=== PATIENT | female | born 1985 | race Caucasian/White ===

== ENCOUNTER → 2017-04-23 | Outpatient (CLI) | payer OTHER ==
[~2017-04-23] MED LIST: IBU600 MG PO; PERCOCET 325 MG1 TA2 PO; PRENATAL1 TA7 PO
== END ==
LOC: SUN.DIA 13:00
DX: O24.419 Gestational diabetes mellitus in pregnancy, unspecified control (principal); Z3A.31 31 weeks gestation of pregnancy; Z71.3 Dietary counseling and surveillance
CPT/HCPCS: G0108

== ENCOUNTER → 2017-04-24 | Outpatient (CLI) | payer OTHER | LOC: SUN.DIA 13:05 | DX: O24.419 Gestational diabetes mellitus in pregnancy, unspecified control (principal); Z3A.31 31 weeks gestation of pregnancy; Z71.3 Dietary counseling and surveillance | CPT/HCPCS: G0108 ==

== ENCOUNTER 2017-05-14 09:18 | Inpatient (IN) | payer OTHER ==
[~2017-05-14] VITALS: Ht 155 cm; Wt 57.3 kg
[2017-06-29] VITALS (20 sets, daily range): BP systolic 92–112; BP diastolic 45–82; PULSE 45–69; TEMP 97.4–98.2
[2017-06-29] MEDS ORDERED: PRENATAL1 TA7 PO (09:27)
[2017-06-29 10:24] LABS: BASO % 0.4 % (0.0-2.0); EOS % 0.3 % (0-4.0); GRAN # 5.1 (1.4-6.5); GRAN % 69.3 % (42.2-75.2); HEMOGLOBIN 12.9 g/dl (12.5-16.0); LYMPH # 1.7 (1.2-3.4); LYMPH % 22.8 % (20.0-51.0); MEAN CELL VOLUME 89 fl (80.0-100.0); MEAN CORPUSCULAR HEMOGLOBIN 30 pg (27.0-31.0); MEAN CORPUSCULAR HGB CONC 34 g/dl (33.0-37.0); MEAN PLATELET VOLUME 12.8 fl (7.4-10.4); MONO # 0.5 (0.1-0.6); MONO % 6.8 % (1.7-9.3); PLATELET COUNT 130 K/mm3 (130-400); RED BLOOD COUNT 4.28 M/mm3 (4.10-5.30); REDCELL DISTRIBUTION WIDTH-CV 14.3 % (11.5-14.5); WHITE BLOOD COUNT 7.3 K/mm3 (4.8-10.8)
[2017-06-30 06:44] LABS: HEMATOCRIT 29.2 % (37.0-47.0); HEMOGLOBIN 9.7 g/dl (12.5-16.0)
[2017-06-30 07:20] VITALS: BP 93/54; PULSE 55; TEMP 97.6
[2017-06-30] MEDS ORDERED: IBU600 MG PO (08:57)
[2017-06-30] MEDS ORDERED: PERCOCET 325 MG1 TA2 PO (08:57)
[2017-06-30 16:00] VITALS: BP 100/58; PULSE 64; TEMP 97.8
[2017-06-30 20:45] VITALS: BP 97/58; PULSE 65; TEMP 98.1
[2017-07-01 07:20] VITALS: BP 99/57; PULSE 70; TEMP 98.6
== END 2017-07-01 11:50 | disposition home or self-care (01) | DRG 765 ==
LOC: OB 06-29 06:57 → EDSTATUS 07-05 06:54 → LDRO 07-05 09:18
PROVIDERS: Obstetrics & Gynecology
PROC: 10D00Z1 Extraction of Products of Conception, Low, Open Approach (ICD-10-PCS; principal; 2017-06-29)
DX: O34.211 Maternal care for low transverse scar from previous cesarean delivery (principal); O36.0130 Maternal care for anti-D [Rh] antibodies, third trimester, not applicable or unspecified; D62 Acute posthemorrhagic anemia; O99.02 Anemia complicating childbirth; N85.8 Other specified noninflammatory disorders of uterus; O24.420 Gestational diabetes mellitus in childbirth, diet controlled; Z3A.39 39 weeks gestation of pregnancy; Z37.0 Single live birth
CPT/HCPCS: J0690; J1885; J2270; J2370; J2405; J2590; J2791; J7120

== ENCOUNTER → 2019-06-26 | Outpatient (CLI) | payer OTHER ==
[2019-06-26 17:30] LABS: COLLECTION METHOD CLEAN CATCH
[2019-06-26 17:36] LABS: BASO # 0.1 (0.0-0.2); BASO % 0.8 % (0.0-2.0); EOS # 0.1 (0.0-0.7); EOS % 0.8 % (0-4.0); GRAN # 4.9 (1.4-6.5); HEMATOCRIT 41.1 % (37.0-47.0); HEMOGLOBIN 13.5 g/dl (12.5-16.0); LYMPH # 2.9 (1.2-3.4); LYMPH % 33.1 % (20.0-51.0); MEAN CELL VOLUME 87 fl (80.0-100.0); MEAN CORPUSCULAR HEMOGLOBIN 29 pg (27.0-31.0); MEAN CORPUSCULAR HGB CONC 33 g/dl (33.0-37.0); MEAN PLATELET VOLUME 11.1 fl (7.4-10.4); MONO # 0.8 (0.1-0.6); MONO % 9.1 % (1.7-9.3); PLATELET COUNT 220 K/mm3 (130-400); RED BLOOD COUNT 4.71 M/mm3 (4.10-5.30); REDCELL DISTRIBUTION WIDTH-CV 12.5 % (11.5-14.5)
[2019-06-26 17:39] LABS: PH 6 (5-8); SQUAMOUS EPITHELIAL None Seen /hpf; URINE APPEARANCE Clear; URINE BACTERIA None Seen /hpf; URINE BILIRUBIN Negative (NEGATIVE); URINE BLOOD 1+ (NEGATIVE); URINE COLOR Colorless; URINE GLUCOSE Negative (NEGATIVE); URINE KETONE Negative (NEGATIVE); URINE LEUKOCYTE ESTERASE Negative (NEGATIVE); URINE NITRATE Negative (NEGATIVE); URINE PROTEIN(semi-quant) Negative (NEGATIVE); URINE RBC 0-2 /hpf; URINE UROBILINOGEN Negative (NEGATIVE); URINE WBC 0-2 /hpf
[2019-06-26 18:10] LABS: CALCIUM 9.6 mg/dL (8.4-10.2); CREATININE, serum 0.63 (0.52-1.25)
== END ==
LOC: ZCOL.LAB 17:25
PROVIDERS: Family Medicine
DX: R10.9 Unspecified abdominal pain (principal)

== ENCOUNTER → 2021-12-21 | Outpatient (CLI) | payer OTHER | LOC: DIA.ED 14:55 | DX: O24.419 Gestational diabetes mellitus in pregnancy, unspecified control (principal) | CPT/HCPCS: G0108 ==

== ENCOUNTER 2022-01-22 14:03 | Outpatient (CLI) | payer OTHER ==
[~2022-01-22] VITALS: Ht 157.5 cm; Wt 55.9 kg
[2022-01-22 14:00] VITALS: BP 97/53; PULSE 71; TEMP 98.1
--- NOTE | 2022-01-22 14:00 | NUR ---
Presents to labor and delivery. States having contractions, and says feels them in the back. Assessment done, questions offered and answered.
[2022-01-22 14:30] VITALS: BP 98/57; PULSE 62
--- NOTE | 2022-01-22 15:45 | NUR ---
Ambulates to the bathroom. Urine obtained and sent to lab. Vag exam done, cervix closed. States still having some back pain.
[2022-01-22 15:52] LABS: COLLECTION METHOD CLEAN CATCH
[2022-01-22 16:00] VITALS: BP 100/60; PULSE 54
[2022-01-22 16:00] LABS: MUCOUS Present (NOT PRESENT); PH 7 (5-8); SQUAMOUS EPITHELIAL 0-2 /hpf (0-10); URINE APPEARANCE Hazy (CLEAR/HAZY); URINE BACTERIA Rare /hpf (NONE SEEN); URINE BILIRUBIN Negative (NEGATIVE); URINE BLOOD Negative (NEGATIVE); URINE COLOR Yellow (YELLOW); URINE GLUCOSE Negative (NEGATIVE); URINE KETONE 2+ (NEGATIVE); URINE LEUKOCYTE ESTERASE 3+ (NEGATIVE); URINE NITRATE Negative (NEGATIVE); URINE PROTEIN(semi-quant) Negative (NEGATIVE); URINE RBC 0-2 /hpf (0-2); URINE UROBILINOGEN Negative (NEGATIVE)
--- NOTE | 2022-01-22 16:00 | NUR ---
Rests in bed, alert. Tylenol 1000 mg, vistaril 50 mg given as ordered. Crackers given.
[2022-01-22 17:00] VITALS: BP 96/55; PULSE 69
--- NOTE | 2022-01-22 17:00 | NUR ---
States contractions not coming as often. [place] and jelly given.
== END 2022-01-22 17:45 | disposition home or self-care (01) ==
LOC: LDRO 14:03
PROVIDERS: Obstetrics & Gynecology
DX: O62.9 Abnormality of forces of labor, unspecified (principal); Z3A.35 35 weeks gestation of pregnancy

== ENCOUNTER 2022-02-14 08:44 | Inpatient (IN) | payer OTHER ==
[~2022-02-14] VITALS: Ht 157.5 cm; Wt 55.6 kg
[2022-02-14] VITALS (17 sets, daily range): BP systolic 91–124; BP diastolic 39–100; PULSE 50–93; TEMP 97–97.9
--- NOTE | 2022-02-14 08:50 | NUR ---
PT ARRIVES AMBULATORY TO UNIT FOR SCHEDULED REPEAT CSECTION. PT DENIES CONTRACTIONS AND LOF. REPORTS POSITIVE MOVEMENT. PLACED ON EFM/TOCO UPON ARRIVAL, CATEGORY 1 TRACING. VITAL SIGNS STABLE. PHYSICIAN AND TEAM NOTIFIED OF PT ARRIVAL. WILL RESUME WITH POC PER PROTOCOL.
[2022-02-14 09:30] LABS: HEMATOCRIT 37.8 % (37.0-47.0); HEMOGLOBIN 12.7 g/dl (12.5-16.0); MEAN CELL VOLUME 93 fl (80.0-100.0); MEAN CORPUSCULAR HEMOGLOBIN 31 pg (27-31); MEAN CORPUSCULAR HGB CONC 34 g/dl (33.0-37.0); MEAN PLATELET VOLUME 12.4 fl (7.4-10.4); PLATELET COUNT 121 K/mm3 (130-400); RED BLOOD COUNT 4.07 M/mm3 (4.10-5.30); REDCELL DISTRIBUTION WIDTH-CV 14.5 % (11.5-14.5)
[2022-02-14 09:54] LABS: BAND 5 % (0-10); LYMPHOCYTE 26 % (20.0-51.0); METAMYELOCYTE 1 % (0-0); MYELOCYTE 2 % (0-0); NEUTROPHILS 60 % (42.0-75.2)
[2022-02-14 09:55] LABS: PLATELET ESTIMATE DECREASED (NORMAL)
[2022-02-15] VITALS: BP 91/47; PULSE 53; TEMP 98.1
[2022-02-15 05:53] LABS: BASO % 0.4 % (0.0-2.0); EOS % 0.2 % (0.0-4.0); GRAN # 7.9 K/mm3 (1.4-6.5); GRAN % 74.7 % (42.2-75.2); LYMPH # 1.6 K/mm3 (1.2-3.4); LYMPH % 14.9 % (20.0-51.0); MEAN CELL VOLUME 93 fl (80.0-100.0); MEAN CORPUSCULAR HGB CONC 33 g/dl (33.0-37.0); MEAN PLATELET VOLUME 11.9 fl (7.4-10.4); MONO # 0.9 K/mm3 (0.1-0.6); MONO % 8.9 % (1.7-9.3); PLATELET COUNT 114 K/mm3 (130-400); REDCELL DISTRIBUTION WIDTH-CV 14.6 % (11.5-14.5)
[2022-02-15 05:54] LABS: HEMATOCRIT 30.7 % (37.0-47.0); HEMOGLOBIN 10.2 g/dl (12.5-16.0); MEAN CORPUSCULAR HEMOGLOBIN 31 pg (27-31)
[2022-02-15 07:45] VITALS: BP 91/45; PULSE 54; TEMP 98
--- NOTE | 2022-02-15 08:00 | NUR ---
Rests in bed, alert. Percocet 5/325 mg one given per request and as ordered. Denies any other need at this time.
--- NOTE | 2022-02-15 10:01 | NUR ---
Initial visit; Parents thanked [employer] for offering congratulations and God's blessings for the of their son. [employer] thanked family for choosing [facility].
[2022-02-15 11:00] VITALS: BP 92/52; PULSE 66; TEMP 97.7
[2022-02-15 16:00] VITALS: BP 101/50; PULSE 67; TEMP 97.9
--- NOTE | 2022-02-15 16:00 | NUR ---
Rests in bed, alert. Percocet 5/325 mg one given per request and as ordered.
--- NOTE | 2022-02-15 17:28 | NUR ---
Rests in bed, alert. Ibuprofen 600 mg given as ordered.
[2022-02-15 19:00] VITALS: BP 91/48; PULSE 64; TEMP 97.8
--- NOTE | 2022-02-16 04:39 | NUR ---
02/15 2200 PATIENT UP, SHOWERED, REMOVED DRESSING.
[2022-02-16 05:30] VITALS: BP 84/45; PULSE 60; TEMP 98.1
[2022-02-16 08:10] VITALS: BP 90/48; PULSE 58; TEMP 97.8
[2022-02-16] MEDS ORDERED: IBU600 MG PO (08:42)
[2022-02-16] MEDS ORDERED: PERCOCET 325 MG1 TA2 PO (08:42)
== END 2022-02-16 12:35 | disposition home or self-care (01) | DRG 787 ==
LOC: OB 08:44
PROVIDERS: Obstetrics & Gynecology; ADMIT Obstetrics & Gynecology
PROC: 10D00Z1 Extraction of Products of Conception, Low, Open Approach (ICD-10-PCS; principal; 2022-02-14)
DX: O34.211 Maternal care for low transverse scar from previous cesarean delivery (principal); O99.12 Other diseases of the blood and blood-forming organs and certain disorders involving the immune mechanism complicating childbirth; O24.420 Gestational diabetes mellitus in childbirth, diet controlled; D69.59 Other secondary thrombocytopenia; Z37.0 Single live birth; O69.81X0 Labor and delivery complicated by cord around neck, without compression, not applicable or unspecified; O26.893 Other specified pregnancy related conditions, third trimester; Z67.41 Type O blood, Rh negative; Z3A.39 39 weeks gestation of pregnancy
CPT/HCPCS: J0171; J0690; J1885; J2405; J2590; J2791; J7120